=== PATIENT | male | born 1940 ===

== ENCOUNTER 2024-03-14 14:51 | Outpatient (CLI) | payer MEDICARE, BC, SELFPAY ==
--- NOTE | ~2024-03-14 | CT_ITS ---
EXAMINATION: CT hip RT wo con DATE: 03/14/2024 15:15 INDICATION: Chronic right hip pain. TECHNIQUE: Computed tomography (CT) of the right hip was performed without intravenous contrast. Auto mated exposure control and iterative reconstruction technique were employed. The dose-length product was 800.10 mGy-cm. 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 No fracture. No peripro sthetic lucency to suggest loosening or infection. IMPRESSION: 1. Total right hip arthroplasty in near-anatomic alignment. Reviewed, dictated and finalized at location A.
== END 2024-03-14 14:52 | disposition home or self-care (01) ==
LOC: ANHIMG 14:54
PROVIDERS: PCP Registered Nurse; Visit Provider Orthopaedic Surgery
DX: M25.551 Pain in right hip (principal); G89.29 Other chronic pain; Z96.641 Presence of right artificial hip joint
CPT/HCPCS: 73700

== ENCOUNTER 2024-03-18 07:03 | Outpatient (CLI) | payer MEDICARE, BC, SELFPAY ==
--- NOTE | ~2024-03-18 | NM_ITS ---
EXAMINATION: NM bone scan limited area DATE: 03/18/2024 10:42 INDICATION: Chronic right hip pain TECHNIQUE: 26.1 mCi Tc-99m HDP was administered intravenously. Delayed scintigrams of the pelvis and bilateral proximal femurs were obtained in anterior, posterior left and right lateral obliquities. COMPARISON: Right hip CT dated 03/14/2024 FINDINGS: Photopenic defect in the proximal right femur corresponding to a right total hip arthroplasty. There is no abnormal periprosthetic activity at either the acetabular or femoral component to suggest loose mitzi or infection. There is mild uptake at the right posterior aspect of the lower lumbar spine likel y related to facet osteoarthritis. No other suspicious foci of abnormal bone uptake to suggest fractu re or other acute osseous abnormality. IMPRESSION: 1. Right total hip arthroplasty with no abnormal periprosthetic activity to suggest loosening, infect ion, fracture or other acute osseous adenopathy. Reviewed, dictated and finalized at location B. IMPRESSION: 1. Right total hip arthroplasty with no abnormal periprosthetic activity to sug gest loosening, infection, fracture or other acute osseous adenopathy.
== END 2024-03-18 07:04 | disposition home or self-care (01) ==
PROVIDERS: PCP Registered Nurse; Visit Provider Orthopaedic Surgery
DX: M25.551 Pain in right hip (principal); G89.29 Other chronic pain; Z96.641 Presence of right artificial hip joint
CPT/HCPCS: 78300; A9503